=== PATIENT | male | born 1955 | race African-American/Black ===

== ENCOUNTER 2017-09-12 10:24 | Inpatient (IN) | payer OTHER ==
[2017-09-12] VITALS (10 sets, daily range): BP systolic 117–166; BP diastolic 68–96
[~2017-09-12] VITALS: Ht 182.9 cm; Wt 94.5 kg
--- NOTE | ~2017-09-12 | WRIGHTHP ---
[place], [place] PATIENT HISTORY AND PHYSICAL EXAM [id number] UNIT #: [id number] ROOM: 508 DOCTOR: ADILSON TALLEY MD BIRTHDATE: [birth year] DOS: 09/12/2017 HISTORY OF PRESENT ILLNESS: 1. The patient is a 62-year-old gentleman with a past medical history of recurrent urinary infections. 2. Advance multiple sclerosis with generalized weakness and paraplegia with all four extremity contractures. 3. 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 4. Hypertension. 5. History of deep venous thrombosis in the lower extremities. 6. Iron deficiency anemia. 7. Hyperlipidemia. The patient presented to the Emergency Department at [facility] and seen by Dr. Stanford for fever and lethargy and he was found to have urinary tract infection and sepsis with temperature of 101.2 degrees Fahrenheit and leukocytosis with white cell count of 13,200 and altered mental status and delirium. After admission, the patient is starting to feel better. The patient was treated with some hydration and started on antibiotics and oxygen. No dizziness or fainting episodes. No other GI or urinary symptoms. REVIEW OF SYSTEMS: LUNGS: No increasing shortness of breath or wheezing. GASTROINTESTINAL: No nausea, vomiting, diarrhea, constipation. CARDIOVASCULAR: No palpitations or chest pains. FAMILY HISTORY: Noncontributory. SOCIAL HISTORY: No recent smoking cigarettes, alcohol, and drug abuse. MEDICATIONS: MiraLax, aspirin, amlodipine, ropinirole, Colace, Lumigan eyedrops, clonazepam, fentanyl, and Tylenol. PHYSICAL EXAMINATION: GENERAL: Awake, alert, pleasantly confused, only oriented to person, also remembers my name. VITAL SIGNS: Blood pressure 146/82, heart rate 110 beats per minute, breathing at 15 times per minute, temperature 99 to 101.2 degrees Fahrenheit. HEENT AND NECK: Extraocular movements are intact. Sclerae are anicteric. Oral mucosa is moist and clean. No obvious facial weakness. Neck is supple without any lymphadenopathy. No thyromegaly. No JVD. No carotid arterial bruits. LUNGS: Clear to auscultation. No wheezing. No rhonchi. CARDIOVASCULAR SYSTEM: Heart rate is regular in rate and rhythm. S1 and S2 normally audible. No significant murmur or any other abnormal cardiac sounds. ABDOMEN: Soft, nontender. No obvious organomegaly. Bowel sounds are present. No obvious herniation. EXTREMITIES: Without significant cyanosis or edema. Warm to touch. CENTRAL NERVOUS SYSTEM: Generalized muscle wasting contractures of all four extremities and quadriplegia, also decubiti over the back and buttocks. [place], [place] PATIENT HISTORY AND PHYSICAL EXAM NAME: WILLIAM TREJO UNIT #: [id number] ROOM: 508 DOCTOR: ADILSON TALLEY MD BIRTHDATE: [birth year] LABORATORY DATA: Negative cardiac enzymes. PT, PTT baseline. Chest x-ray with no acute disease. Normal serum electrolytes. Albumin low at 2.5. Lactic acid level was normal with white cell count elevated at 13,200. IMPRESSION: 1. The patient with sepsis and urinary infection. Urine culture results are pending. The patient with fever, leukocytosis, and altered mental status with lethargy. The patient to be treated with Levaquin and I will wait for culture results. 2. Advance disability and failure to thrive with advanced multiple sclerosis for a very long time, quadriplegia, and advanced disability. I will get palliative care consult. 3. All extremity contractures with chronic pains and some bed sores with chronic pains controlled with fentanyl, Percocet, and baclofen pump. 4. Moderate to severe protein calorie malnutrition. 5. Leukocytosis, I will repeat blood counts apparently related to sepsis. 6. Glaucoma for which he uses eyedrops which are being continued. 7. Chronic constipation, treated and controlled with Colace. 8. Benign essential hypertension. The patient remains on amlodipine. Blood pressures are to be monitored and controlled. ADILSON TALLEY MD CM:HISPHYS:PATIENT HISTORY AND PHYSICAL EXAMINATION [id number] [phone] ADILSON TALLEY MD 09/12/172101 interface
--- NOTE | ~2017-09-12 | DS ---
[place], [place] DISCHARGE SUMMARY NAME: WILLIAM TREJO UNIT #: [id number] ROOM: 508 DOCTOR: OSBALDO ROGERS MD BIRTHDATE: [birth year] DOS: 09/15/2017 DIAGNOSES: 1. Urinary tract infection. 2. Iron deficiency anemia requiring supplements. 3. Sepsis ruled out with negative blood cultures. 4. Multiple sclerosis with adult failure to thrive. 5. Protein-calorie malnutrition, moderate to severe. 6. Benign hypertension. DISCHARGE MEDICATIONS: Levaquin 500 p.o. daily for 10 days, amlodipine 5 daily, aspirin 325 daily, clonazepam 0.5 b.i.d., Colace 100 b.i.d., fentanyl 50 mcg q.72, iron 150 daily, Flonase 2 sprays each nostril daily, folic acid 1 mg daily, Lumigan eye drops twice a day, multivitamin 1 tablet daily, MiraLax 17 grams daily, pramipexole 1 mg twice a day, vitamin D 5000 units daily, fentanyl 100 mcg daily, oxycodone 5/325 q.4h. p.r.n. HOSPITAL COURSE: The patient is 62 years old, was brought in to the hospital, admitted with diagnosis of sepsis, possibly from underlying UTI. After admission, the patient was placed on antibiotics. Urine culture and blood cultures were performed. Blood cultures have come back negative. Urine culture shows Citrobacter amalonaticus and Enterococcus faecalis, which are both sensitive to Levaquin, which the patient is already on and tolerating. His labs look fairly within normal limits as far as the basic is concern, the CBC shows that he is slightly low in his hemoglobin, but he is iron deficient and need to continue on iron supplements and follow up CBC as an outpatient and required transfusion if needed as an outpatient. The patient this morning is stable, plan is to discharge. Follow up with Dr. Adames. OSBALDO ROGERS MD CM:DISCHARG [id number] OSBALDO ROGERS MD 09/15/17 0947 interface
--- NOTE | ~2017-09-12 | PR ---
[place], [place] PROGRESS NOTE NAME: WILLIAM TREJO UNIT #: [id number] ROOM: 508 DOCTOR: ADILSON TALLEY MD BIRTHDATE: [birth year] DOS: 09/13/2017 SUBJECTIVE: Patient much more awake, alert and oriented. OBJECTIVE: VITAL SIGNS: Blood pressure 138/84, heart rate of 100 beats per minute, breathing 20 times per minute, afebrile. GENERAL APPEARANCE: Generalized weakness. The patient is alert and oriented x 3, in no visible distress. HEENT AND NECK: Exam within normal limits. CARDIOVASCULAR SYSTEM: Heart rate is regular in rate and rhythm. S1 and S2 normally audible. LUNGS: Clear to auscultation. ABDOMEN: Soft, nontender. No obvious organomegaly. Bowel sounds are present. EXTREMITIES: Quadriplegia with contractures to all extremities and suprapubic catheter in place. IMPRESSION: 1. Patient with urinary tract infection and sepsis, clinically improving with treatment. 2. Advanced disability and adult failure to thrive. 3. Multiple sclerosis and advanced disability with contractures of all 4 extremities with quadriplegia. 4. Moderately severe protein calorie malnutrition. 5. Leukocytosis still persistent, white cell count staying around 13,000. 6. Glaucoma being treated with eyedrops. 7. Chronic constipation, treated and controlled. Patient on Colace. 8. Benign essential hypertension. Patient treated with amlodipine. ADILSON TALLEY MD CM:PNTRANS [phone] ADILSON TALLEY MD 09/13/17 2254 interface
--- NOTE | ~2017-09-12 | PR ---
[place], [place] PROGRESS NOTE NAME: WILLIAM TREJO UNIT #: [id number] ROOM: 508 DOCTOR: OSBALDO ROGERS MD BIRTHDATE: [birth year] DOS: SUBJECTIVE: The patient is feeling better, does not have any complaints today. OBJECTIVE: VITAL SIGNS: Graphic trend shows pressure of 125/65, pulse of 68, respirations 18, temperature 98.5. LUNGS: Clear. HEART: Regular. ABDOMEN: Obese, soft, nontender. EXTREMITIES: Without any edema. LABORATORY DATA: Urine culture shows Citrobacter amalonaticus, which is sensitive to floxins. LABORATORY DATA: None available today, but yesterday's labs showed that the BUN and creatinine were normal. White cell count was slightly elevated. ASSESSMENT AND PLAN: 1. The patient admitted with urinary tract infection, on Levaquin and the cultures are sensitive. 2. Multiple sclerosis with failure to thrive, chronic contractures and poorly healing wounds. No new changes made in the medicine. The plan is to discharge him back to the shelter tomorrow on p.o. Levaquin. OSBALDO ROGERS MD CM:PNTRANS [id number] OSBALDO ROGERS MD 09/14/17 1034 interface
--- NOTE | ~2017-09-12 | PR ---
[place], [place] PROGRESS NOTE NAME: WILLIAM TREJO UNIT #: [id number] ROOM: 508 DOCTOR: OSBALDO ROGERS MD BIRTHDATE: [birth year] DOS: SUBJECTIVE: The patient is doing well, does not have any complaints. He is resting comfortably ready for his breakfast. OBJECTIVE: VITAL SIGNS: Blood pressure is 131/79, pulse of 87, respirations 20, temperature 98.2. LUNGS: Clear. HEART: Regular. ABDOMEN: Soft. EXTREMITIES: Without any edema. Contraction noted. LABORATORY DATA: WBC count is 8.3, hemoglobin 7.9, hematocrit 26.5, platelets 314. BMP: Glucose 79, creatinine 0.9. Electrolytes were normal. Iron was 20. ASSESSMENT AND PLAN: 1. Iron deficiency anemia, iron supplements will be added. 2. Urinary tract infection with Citrobacter as well as Enterococcus faecalis, both of them are sensitive to Levaquin. We will change the medicine to Levaquin and discharge the patient to home. 3. Sepsis pattern, which has been ruled out with negative cultures. OSBALDO ROGERS MD CM:PNTRANS [phone] OSBALDO ROGERS MD 09/15/17 1001 interface
[~2017-09-12 10:24] MED LIST: ABILIFY10 MG PO; AMLODIPINE5 MG PO; ASPIRIN325 M2 PO; ASPIRIN325 MG PO; AVODART0.5 MG PO; BACLOFEN20 MG PO; BACTRIM DS 8001 TA1 PO; BISCOLAX10 M1 RC; CIPRO500 MG PO; CIPROFLOXACIN500 MG PO; CLONAZEPAM0.5 M1 PO; CLONAZEPAM0.5 MG PO; COLACE PO; COLACE100 MG PO; COUMADIN6 MG PO; DOXYCYCLINE100 M3 PO; DULCOLAX10 MG RC; DUONEB 3 MG/3 ML3 M1 INH; DURAGESIC1 EAC2 T; DURAGESIC75 MCG/HR TD; Duragesic 75 M75 MCG T; FLOMAX0.4 MG PO; FLONASE0.05 MG/AC NS; FOLIC ACID1 MG PO; Ferrex 150150 MG PO; JANTOVEN2.5 MG PO; JANTOVEN4 MG PO; JANTOVEN6 MG PO; LEVOFLOXACIN500 MG PO; LEXAPRO20 MG PO; LUMIGAN 3 ML3 ML OP; LUMIGAN INTRAOC; LUMIGAN50 DRP OU; MACRODANTIN50 MG PO; MAG-OX 400400 MG PO; MIRALAX POWDER17 GM PO; MIRALAX119 GM PO; MIRAPEX1 MG PO; MOM30 M1 PO; MOTRIN800 MG PO; MULTIPLE VITAMI1 CAP PO; NATURE'S BLEND F1 MG PO; NORCO 325 MG-7.1 TAB PO; NORCO 7.5-3251 EACH PO; NORVASC5 MG PO; POLYSPORIN OINT15 GM T; SANTYL250 U/GM T; TYLENOL500 MG PO; VICODIN ES 7501 TA1 PO; VIT D PO; VITAMIN D31000 I1 PO; VITAMIN D31000 IU PO; VITAMIN D5000 I3 PO; ZOFRAN ODT4 MG SL; ZOFRAN8 MG PO; ZOSYN 3 GM-0.371 PD1 IV; ZOSYN 3.373.375 GM/5 IV; ZYVOX600 MG PO
[2017-09-12] MEDS ORDERED: DURAGESIC1 EAC4 T (10:36)
[2017-09-12] MEDS ORDERED: GOOD NEIGHBOR650 MG PO (10:37)
[2017-09-12] MEDS ORDERED: PHENERGAN25 MG R (10:45)
[2017-09-12 11:03] LABS: BILIRUBIN 1+ (NEGATIVE); BLOOD 2+ (NEGATIVE); CLARITY CLOUDY (CLEAR); COLOR YELLOW (YELLOW); GLUCOSE NEGATIVE (NEGATIVE); KETONE TRACE (NEGATIVE); LEUKO ESTERASE 3+ (NEGATIVE); NITRITE NEGATIVE (NEGATIVE)
[2017-09-12 11:09] LABS: WBC TNTC wbc/hpf (0-5)
[2017-09-12 11:18] LABS: BASO # 0.1 10*3/uL (0.0-0.1); BASO % 0.4 % (0.0-1.0); EOS % 0.2 % (1.0-4.0); HEMATOCRIT 33.8 % (42.0-52.0); HEMOGLOBIN 10.1 g/dl (14.0-18.0); LYMPH # 1.4 10*3/uL (1.3-4.4); LYMPH % 10.9 % (27.0-41.0); MEAN CELL VOLUME 74.1 fl (80.0-94.0); MEAN CORPUSCULAR HGB 22.1 pg (27.0-31.0); MEAN CORPUSCULAR HGB CONC 29.9 g/dl (33.0-37.0); MEAN PLATELET VOLUME 9.2 fl (9.6-12.3); MONO # 0.6 10*3/uL (0.1-1.0); MONO % 4.7 % (3.0-9.0); NEUT % 83.3 % (47.0-73.0); PLATELET COUNT AUTOMATED 423 10*3/uL (130-400); RED BLOOD COUNT 4.56 10*6/uL (4.50-5.90); RED CELL DISTRI WIDTH 17.2 % (0-14.5); WHITE BLOOD COUNT 13.2 10*3/uL (4.8-10.8)
[2017-09-12 11:35] LABS: ALBUMIN 2.5 gm/dl (3.1-4.5); ALKALINE PHOSPHATASE 86 U/L (45-117); BUN 14 mg/dl (7-24); CHLORIDE 102 mmol/L (98-107); CREATININE 0.96 mg/dL (0.70-1.30); PHOSPHOROUS 3.7 mg/dL (2.5-4.9); POTASSIUM 4.1 mmol/L (3.5-5.1); SGOT/AST 13 IU/L (3-35); SGPT/ALT 11 U/L (12-78); SODIUM 139 mmol/L (136-145); TOTAL PROTEIN 10.2 gm/dL (6.4-8.2)
[2017-09-12 11:42] LABS: TROPONIN I < 0.015 ng/ml (<0.045)
[2017-09-12 13:01] LABS: ACT PARTIAL THROMBO TIME 25.7 SECONDS (20.8-31.5); INTERNATIONAL NORM RATIO 1.1 (2.0-3.5)
[2017-09-12] MEDS ORDERED: OXYCODONE-ACET500 ML PO (15:05)
[2017-09-12] MEDS ORDERED: MUSCLE RUB CREA35 GM T (15:07)
[2017-09-13] VITALS: BP 144/84
[2017-09-13 06:34] LABS: BASO # 0.1 10*3/uL (0.0-0.1); BASO % 0.5 % (0.0-1.0); EOS # 0.4 10*3/uL (0.0-0.4); EOS % 2.7 % (1.0-4.0); HEMATOCRIT 29.8 % (42.0-52.0); HEMOGLOBIN 8.7 g/dl (14.0-18.0); LYMPH % 30.2 % (27.0-41.0); MEAN CELL VOLUME 76.2 fl (80.0-94.0); MEAN CORPUSCULAR HGB 22.3 pg (27.0-31.0); MEAN CORPUSCULAR HGB CONC 29.2 g/dl (33.0-37.0); MEAN PLATELET VOLUME 9.8 fl (9.6-12.3); MONO # 0.9 10*3/uL (0.1-1.0); MONO % 7.1 % (3.0-9.0); NEUT # 7.7 10*3/uL (2.3-7.9); NEUT % 59.1 % (47.0-73.0); PLATELET COUNT AUTOMATED 409 10*3/uL (130-400); RED BLOOD COUNT 3.91 10*6/uL (4.50-5.90); RED CELL DISTRI WIDTH 17.3 % (0-14.5); WHITE BLOOD COUNT 13.1 10*3/uL (4.8-10.8)
[2017-09-13 06:43] LABS: BUN 16 mg/dl (7-24); CHLORIDE 105 mmol/L (98-107); CREATININE 0.94 mg/dL (0.70-1.30); POTASSIUM 3.8 mmol/L (3.5-5.1); SODIUM 140 mmol/L (136-145)
[2017-09-13 08:00] VITALS: BP 120/70
[2017-09-13 12:00] VITALS: BP 119/72
[2017-09-13 16:00] VITALS: BP 138/84
[2017-09-13 20:00] VITALS: BP 119/90
[2017-09-14] VITALS: BP 135/69
[2017-09-14 07:59] VITALS: BP 125/65
[2017-09-14 12:00] VITALS: BP 113/59
[2017-09-14 16:00] VITALS: BP 125/68
[2017-09-14 20:00] VITALS: BP 125/71
[2017-09-15] VITALS: BP 126/79
[2017-09-15 08:00] VITALS: BP 131/79
[2017-09-15 08:10] LABS: BASO # 0.1 10*3/uL (0.0-0.1); BASO % 0.7 % (0.0-1.0); EOS # 0.4 10*3/uL (0.0-0.4); EOS % 4.6 % (1.0-4.0); HEMATOCRIT 26.5 % (42.0-52.0); HEMOGLOBIN 7.9 g/dl (14.0-18.0); LYMPH # 2.1 10*3/uL (1.3-4.4); LYMPH % 25.7 % (27.0-41.0); MEAN CELL VOLUME 75.1 fl (80.0-94.0); MEAN CORPUSCULAR HGB 22.4 pg (27.0-31.0); MEAN CORPUSCULAR HGB CONC 29.8 g/dl (33.0-37.0); MEAN PLATELET VOLUME 9.9 fl (9.6-12.3); MONO # 0.6 10*3/uL (0.1-1.0); MONO % 6.9 % (3.0-9.0); NEUT # 5.1 10*3/uL (2.3-7.9); NEUT % 61.4 % (47.0-73.0); PLATELET COUNT AUTOMATED 314 10*3/uL (130-400); RED BLOOD COUNT 3.53 10*6/uL (4.50-5.90); RED CELL DISTRI WIDTH 17.2 % (0-14.5); WHITE BLOOD COUNT 8.3 10*3/uL (4.8-10.8)
[2017-09-15 08:19] LABS: BUN 9 mg/dl (7-24); CHLORIDE 104 mmol/L (98-107); CREATININE 0.72 mg/dL (0.70-1.30); POTASSIUM 3.6 mmol/L (3.5-5.1); SODIUM 138 mmol/L (136-145)
[2017-09-15] MEDS ORDERED: LEVOFLOXACIN500 MG PO (09:18)
[2017-09-15 16:00] VITALS: BP 127/79
== END 2017-09-15 18:13 | DRG 689 ==
LOC: ED 10:24 → EDHOLD 14:20 → 5E 14:20
PROVIDERS: Internal Medicine
DX: N39.0 Urinary tract infection, site not specified (principal); G82.50 Quadriplegia, unspecified; E43 Unspecified severe protein-calorie malnutrition; L89.322 Pressure ulcer of left buttock, stage 2; L89.153 Pressure ulcer of sacral region, stage 3; E78.5 Hyperlipidemia, unspecified; R62.7 Adult failure to thrive; G35 Multiple sclerosis; N31.2 Flaccid neuropathic bladder, not elsewhere classified; L89.890 Pressure ulcer of other site, unstageable; L89.511 Pressure ulcer of right ankle, stage 1; L89.520 Pressure ulcer of left ankle, unstageable; H40.9 Unspecified glaucoma; D50.9 Iron deficiency anemia, unspecified; B95.2 Enterococcus as the cause of diseases classified elsewhere; K59.09 Other constipation; I10 Essential (primary) hypertension; Z79.51 Long term (current) use of inhaled steroids; Z79.82 Long term (current) use of aspirin; Z79.899 Other long term (current) drug therapy; Z86.718 Personal history of other venous thrombosis and embolism; Z68.28 Body mass index [BMI] 28.0-28.9, adult